=== PATIENT | female | born 1975 | race African-American/Black ===

== ENCOUNTER 2019-03-10 19:11 | Emergency (ER) | payer OTHER ==
[~2019-03-10] VITALS: Ht 167.6 cm; Wt 70.0 kg
[2019-03-10 19:13] VITALS: BP 137/81
== END 2019-03-10 21:56 | disposition left against medical advice (07) ==
LOC: ER 19:11
DX: R53.1 Weakness (principal); Z53.21 Procedure and treatment not carried out due to patient leaving prior to being seen by health care provider